=== PATIENT | female | born 2000 | race Caucasian/White ===

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

== ENCOUNTER 2020-10-30 23:40 | Emergency (ER) | payer OTHER, SELFPAY ==
--- NOTE | ~2020-10-30 | CT_ITS ---
EXAMINATION: CT abdomen pelvis w con DATE: 10/31/2020 01:07 INDICATION: Right lower quadrant abdominal pain. TECHNIQUE: Computed tomography (CT) of the abdomen and pelvis was performed with 100 mL Omnipaque 350 intravenous contrast. Automated exposure control and iterative reconstruction technique were employe d. The dose-length product was 305.87 mGy-cm. COMPARISON: None. FINDINGS: The visualized portions of the lung bases are clear without pneumonia or pleural effusion. The heart size is normal. No pericardial effusion. The liver, gallbladder, spleen, pancreas, and adre nal glands are normal. There are cysts in the kidneys measuring up to 10 mm on the right. There is li quid stool in the colon suggestive of diarrhea. The appendix is normal. There are no dilated loops of bowel. There is a small sliding hiatal hernia. There are no pathologically enlarged lymph nodes. The re is no free intraperitoneal fluid. The bones are unremarkable. IMPRESSION: 1. Small sliding hiatal hernia. Reviewed, dictated and finalized at location A.
[2020-10-30 23:44] VITALS: BP 116/66; PULSE 99; RESP 14; TEMP 36.6; O2SAT 99
--- NOTE | 2020-10-31 00:02 | PC.NURSE ---
While patient was getting blood drawn patient states she began to feel very dizzy and nauseous. Blood draw was stopped and patient got out of chair and kneeled next to trash can and had 2 episodes of emesis. Patient then sat on the ground after having a near syncopal episode. Patient alert and oriented and states she gets dizzy with blood draw. KIMBERP Leeanna updated.
[2020-10-31 00:17] LABS: Basophils Percent Auto 0.2 % (0.2-1.2); Eosinophils Absolute Auto 0.2 K/mm3 (0-0.3); Eosinophils Percent Auto 1.2 % (0-4.4); Hematocrit 44.2 % (37.0-47.0); Hemoglobin 15.2 g/dL (12.0-15.0); Immature Granulocyte Absolute 0.04 K/mm3 (0.00-0.031); Immature Granulocyte Percent A 0.3 % (0-0.5); Lymphocytes Absolute Auto 2.15 K/mm3 (0.9-3.2); Lymphocytes Percent Auto 16.4 % (18.3-44.2); Mean Corpuscular HGB Conc 34.4 g/dl (32-36); Mean Corpuscular Hemoglobin 31.5 pg (26-34); Mean Corpuscular Volume 91.7 fl (80-100); Mean Platelet Volume 11.3 fl (7.4-10.4); Monocytes Absolute Auto 0.5 K/mm3 (0.1-0.6); Neutrophils Absolute Auto 10.2 K/mm3 (1.3-6.7); Neutrophils Percent Auto 77.9 % (45.5-73.1); Platelet Count Result 384 k/mm3 (150-375); Red Blood Count 4.82 M/mm3 (4.2-5.4); Red Cell Distribution Width 11.9 % (11.5-14.5); White Blood Count 13.1 K/mm3 (4.5-10.0)
--- NOTE | 2020-10-31 00:27 | ED.GENADULT ---
HPI - General Adult General Chief complaint: Abdominal Pain Stated complaint: abd pain Time Seen by Provider: 10/31/20 00:20 History of Present Illness HPI narrative: Patient 19-year-old female presents the emergency department with chief complaint of abdominal pain. Patient states the pain began approximately 2 hours ago states that it is more localized to the right lower quadrant reports has had some nausea and vomiting with it. Patient denies fever denies chills reports her last period was approximately 6 months ago but she does continual OCPs without a withdrawal phase. Patient states that she is having no urinary symptoms no flank pain. Related Data Home Medications Medication Instructions Recorded Confirmed Adderall 20 mg DAILY 07/08/19 07/08/19 Tri 07/08/19 sertraline [Zoloft] 50 mg PO DAILY 07/08/19 07/08/19 spironolactone 100 mg PO DAILY 07/08/19 07/08/19 Allergies Allergy/AdvReac Type Severity Reaction Status Date / Time No Known Allergies Allergy Verified 11/25/19 16:15 Review of Systems Review of Systems: Narrative: A 10 system review of systems was completed on the patient and is negative except for what is stated in the HPI. Nursing and ancillary documentation was reviewed. PMFSH Comments Patient denies significant past medical history Social history the patient denies smoking Exam Narrative: Exam Narrative: GENERAL: Well-appearing, well-nourished, and in no acute distress. HEAD: Normocephalic, atraumatic. EYES: PERRLA and EOMI. ENT: Nares clear, no rhinorrhea or epistaxis. Mucous membranes moist. NECK: Supple. CHEST: Clear to auscultation. No respiratory distress. HEART: Regular rate and rhythm. No murmur heard. Normal peripheral pulses. ABDOMEN: Soft, tender to palpation in the right lower quadrant, nondistended, normal active bowel sounds. EXTREMITIES: Normal range of motion. No edema. SKIN: Warm, dry, no rash. NEURO: No focal deficits. Alert and oriented x3. PSYCH: Normal mood and affect. Course Course Emergency Course: CT scan shows no significant abnormalities other than fluid in the colon suggesting diarrhea Vital Signs Vital signs: Vital Signs Temperature 36.6 C 10/30/20 23:44 Pulse Rate 99 10/30/20 23:44 Respiratory Rate 14 10/30/20 23:44 Blood Pressure 116/66 10/30/20 23:44 Pulse Oximetry 99 10/30/20 23:44 Temperature 36.6 C 10/30/20 23:44 Pulse Rate 99 10/30/20 23:44 Respiratory Rate 14 10/30/20 23:44 Blood Pressure 116/66 10/30/20 23:44 Pulse Oximetry 99 10/30/20 23:44 Medical Decision Making Vital Signs Vital Signs: Vital Signs Temperature 36.6 C 10/30/20 23:44 Pulse Rate 99 10/30/20 23:44 Respiratory Rate 14 10/30/20 23:44 Blood Pressure 116/66 10/30/20 23:44 Pulse Oximetry 99 10/30/20 23:44 Temperature 36.6 C 10/30/20 23:44 Pulse Rate 99 10/30/20 23:44 Respiratory Rate 14 10/30/20 23:44 Blood Pressure 116/66 10/30/20 23:44 Pulse Oximetry 99 10/30/20 23:44 Lab Data Result diagrams: 10/31/20 00:04 10/31/20 00:04 Labs: Lab Results 10/31/20 10/31/20 10/31/20 Range/Units 00:04 00:04 00:35 WBC 13.1 H (4.5-10.0) K/mm3 RBC 4.82 (4.2-5.4) M/mm3 Hgb 15.2 H (12.0-15.0) g/dL Hct 44.2 (37.0-47.0) % MCV 91.7 (80-100) fl MCH 31.5 (26-34) pg MCHC 34.4 (32-36) g/dl RDW 11.9 (11.5-14.5) % Plt Count 384 H (150-375) k/mm3 MPV 11.3 H (7.4-10.4) fl Immature Gran % (Auto) 0.3 (0-0.5) % Neut % (Auto) 77.9 H (45.5-73.1) % Lymph % (Auto) 16.4 L (18.3-44.2) % [place] % (Auto) 4.0 (2.6-8.5) % Eos % (Auto) 1.2 (0-4.4) % Baso % (Auto) 0.2 (0.2-1.2) % Lymph # (Auto) 2.15 (0.9-3.2) K/mm3 [place] # (Auto) 0.5 (0.1-0.6) K/mm3 Eos # (Auto) 0.2 (0-0.3) K/mm3 Baso # (Auto) 0.0 (0.0-0.1) K/mm3 Abs Immat Gran (auto) 0.04 H (0.00-0.031) K/mm3 Absolute Neuts (auto) 10.2 H
[2020-10-31 00:29] LABS: Alanine Aminotransferase 24 U/L (4-35); Albumin Level 4.4 g/dL (3.7-5.6); Alkaline Phosphatase 29 U/L (45-116); Anion Gap 6 mmol/L (8-16); Aspartate Amino Transferase 53 U/L (14-36); Bilirubin,Total 0.5 mg/dL (0.2-1.3); Blood Urea Nitrogen 10 mg/dL (8-21); Calcium 9.4 mg/dL (8.9-10.7); Carbon Dioxide 26 mmol/L (22-30); Chloride 106 mmol/L (98-107); Estimated CRCL calculation 89 ml/min; Estimated Glomerular Filt Rate > 60; Glucose 89 mg/dL (65-105); Lipase 52 U/L (23-300); Potassium 3.8 mmol/L (3.4-5.0); Sodium 138 mmol/L (134-143)
[2020-10-31 01:02] LABS: Add Urine Microscopic? YES; Appearance Urine Clear (Clear); Bacteria Urine Trace /hpf; Bilirubin Urine Negative (Negative); Blood Urine Negative (Negative); Color Urine Yellow (Yellow); Glucose Urine UA Negative (Negative); Ketones Urine Negative (Negative); Leukocyte Esterase Ur Trace LEU/UL (Negative); Mucus Urine Few /lpf; Nitrate Urine Negative (Negative); Protein Urine 1+ mg/dL (Negative); RBC Urine 0-2 /hpf (0-2); Specific Grav Ur 1.025 (1.001-1.035); Squamous Epithelial Cell Urine Moderate /hpf (Few); Urobilinogen Urine Negative mg/dL (<2.0); WBC Urine 0-3 /hpf
[2020-10-31] MEDS: SODIUM CHLORIDE 0.9% IV 1,000 ML 999 ML IV CONT (01:10)
[2020-10-31] MEDS: ONDANSETRON INJ 4 MG/2 ML VIAL IV PUSH (01:10)
[2020-10-31] MEDS: MORPHINE SULFATE (*CRX) 4 MG/ML INJ IV PUSH (01:11)
[2020-10-31 02:36] VITALS: BP 110/65; PULSE 60; RESP 14; TEMP 36.6
== END 2020-10-31 02:37 | disposition home or self-care (01) ==
PROVIDERS: Emergency Provider Emergency Medicine; PCP Family Medicine
DX: R10.9 Unspecified abdominal pain (principal); K44.9 Diaphragmatic hernia without obstruction or gangrene
CPT/HCPCS: 36415; 74177; 80053; 81001; 81025; 83690; 85025; 96361; 96374; 96375; 99284; J2270; J2405; J7030; Q9967

== ENCOUNTER 2021-12-22 01:20 | Emergency (ER) | payer OTHER, SELFPAY ==
[2021-12-22] VITALS (9 sets, daily range): BP systolic 94–129; BP diastolic 50–86; PULSE 84–140; RESP 12–24; TEMP 36.7–39.1; O2SAT 96–99
--- NOTE | ~2021-12-22 | CT_ITS ---
EXAMINATION: CT abdomen pelvis wo con DATE: 12/22/2021 03:23 INDICATION: Fever TECHNIQUE: Computed tomography (CT) of the abdomen and pelvis was performed without intravenous contr ast. The dose-length product (DLP) was 470.89 mGy-cm. Automated exposure control and iterative recons truction technique were employed. COMPARISON: 10/31/2020 FINDINGS: The lung bases are clear. The heart size is normal. Within the limitations of noncontrast e xamination, the liver, spleen, pancreas, gallbladder, and adrenal glands are normal. The kidneys are unremarkable. No stones are identified in the kidneys, ureters, or bladder. There is no hydronephrosi s or hydroureter. No pathologically enlarged abdominal or pelvic lymph nodes are identified. There is no free intraperitoneal gas or evidence of bowel obstruction. A moderate volume of colonic stool is present. IMPRESSION: 1. No CT correlate for the patient's symptoms. Reviewed, dictated and finalized at location A.
--- NOTE | ~2021-12-22 | XR_ITS ---
EXAMINATION: XR chest 1V portable INDICATION: Cough and fever TECHNIQUE: Portable AP chest at 0155 hours COMPARISON: 10/19/2019 FINDINGS: The lungs are free of acute opacities. There is no pleural effusion or pneumothorax. The ca rdiomediastinal silhouette is normal. IMPRESSION: 1. No acute cardiopulmonary abnormality. Reviewed, dictated and finalized at location A.
[2021-12-22 01:59] LABS: Basophils Absolute Auto 0.1 K/mm3 (0.0-0.1); Basophils Percent Auto 0.3 % (0.2-1.2); Eosinophils Percent Auto 0.1 % (0-4.4); Hematocrit 36.6 % (37.0-47.0); Hemoglobin 11.9 g/dL (12.0-15.0); Immature Granulocyte Absolute 0.09 K/mm3 (0.00-0.031); Immature Granulocyte Percent A 0.5 % (0-0.5); Lymphocytes Absolute Auto 0.77 K/mm3 (0.9-3.2); Lymphocytes Percent Auto 4.2 % (18.3-44.2); Mean Corpuscular HGB Conc 32.5 g/dl (32-36); Mean Corpuscular Hemoglobin 30.9 pg (26-34); Mean Corpuscular Volume 95.1 fl (80-100); Mean Platelet Volume 10.6 fl (7.4-10.4); Monocytes Absolute Auto 0.7 K/mm3 (0.1-0.6); Monocytes Percent Auto 3.9 % (2.6-8.5); Neutrophils Absolute Auto 16.6 K/mm3 (1.3-6.7); Platelet Count Result 289 k/mm3 (150-375); Red Blood Count 3.85 M/mm3 (4.2-5.4); Red Cell Distribution Width 12.3 % (11.5-14.5); White Blood Count 18.3 K/mm3 (4.5-10.0)
--- NOTE | 2021-12-22 02:01 | ED.GENADULT ---
HPI - General Adult General Chief complaint: Fever Stated complaint: Fever Time Seen by Provider: 12/22/21 01:34 History of Present Illness HPI narrative: Patient is a 20-year-old female that presents the emergency department with chief complaint of fever. Reports that today she started having fever has had body aches and sore throat a little bit of a cough. The patient reports that she has been vaccinated for COVID has had a booster for COVID as well. The patient denies dysuria denies abdominal pain reports a little bit of nausea with this. Patient reports he is taken Tylenol last dose of 650 mg at 10 PM. Related Data Home Medications Medication Instructions Recorded Confirmed Adderall 20 mg DAILY 07/08/19 07/08/19 Tri 07/08/19 sertraline [Zoloft] 50 mg PO DAILY 07/08/19 07/08/19 spironolactone 100 mg PO DAILY 07/08/19 07/08/19 Allergies Allergy/AdvReac Type Severity Reaction Status Date / Time No Known Allergies Allergy Verified 12/22/21 01:35 Review of Systems Review of Systems: A 10 system review of systems was completed on the patient and is negative except for what is stated in the HPI. Nursing and ancillary documentation was reviewed. Exam Narrative: GENERAL: Well-appearing, well-nourished, and in no acute distress. HEAD: Normocephalic, atraumatic. EYES: PERRLA and EOMI. ENT: Nares clear, no rhinorrhea or epistaxis. Mucous membranes moist. NECK: Supple. CHEST: Clear to auscultation. No respiratory distress. HEART: Regular rate and rhythm. No murmur heard. Normal peripheral pulses. ABDOMEN: Soft, nontender, nondistended, normal active bowel sounds. EXTREMITIES: Normal range of motion. No edema. SKIN: Warm, dry, no rash. NEURO: No focal deficits. Alert and oriented x3. PSYCH: Normal mood and affect. Course Course Emergency Course: CT scan showed evidence of a right-sided pyelonephritis. Patient is feeling much better at this time patient would prefer to choose outpatient therapy since she is feeling much better. Patient was started on cefdinir and the patient was discharged home Vital Signs Vital signs: Vital Signs Temperature 39.1 C H 12/22/21 01:22 Pulse Rate 140 H 12/22/21 01:22 Respiratory Rate 24 H 12/22/21 01:22 Blood Pressure 118/69 12/22/21 01:22 Pulse Oximetry 98 12/22/21 01:22 Temperature 36.7 C 12/22/21 05:08 Pulse Rate 86 12/22/21 05:37 Respiratory Rate 12 12/22/21 05:37 Blood Pressure 99/60 L 12/22/21 05:37 Pulse Oximetry 96 12/22/21 05:37 Medical Decision Making Vital Signs Vital Signs: Vital Signs Temperature 39.1 C H 12/22/21 01:22 Pulse Rate 140 H 12/22/21 01:22 Respiratory Rate 24 H 12/22/21 01:22 Blood Pressure 118/69 12/22/21 01:22 Pulse Oximetry 98 12/22/21 01:22 Temperature 36.7 C 12/22/21 05:08 Pulse Rate 86 12/22/21 05:37 Respiratory Rate 12 12/22/21 05:37 Blood Pressure 99/60 L 12/22/21 05:37 Pulse Oximetry 96 12/22/21 05:37 Lab Data Result diagrams: 12/22/21 01:51 12/22/21 01:51 Labs: Lab Results 12/22/21 12/22/21 12/22/21 Range/Units 01:51 01:51 01:51 WBC 18.3 H (4.5-10.0) K/mm3 RBC 3.85 L (4.2-5.4) M/mm3 Hgb 11.9 L D (12.0-15.0) g/dL Hct 36.6 L (37.0-47.0) % MCV 95.1 (80-100) fl MCH 30.9 (26-34) pg MCHC 32.5 (32-36) g/dl RDW 12.3 (11.5-14.5) % Plt Count 289 (150-375) k/mm3 MPV 10.6 H (7.4-10.4) fl Immature Gran % (Auto) 0.5 (0-0.5) % Neut % (Auto) 91.0 H (45.5-73.1) % Lymph % (Auto) 4.2 L (18.3-44.2) % [place] % (Auto) 3.9 (2.6-8.5) % Eos % (Auto) 0.1 (0-4.4) % Baso % (Auto) 0.3 (0.2-1.2) % Lymph # (Auto) 0.77 L (0.9-3.2) K/mm3 [place] # (Auto) 0.7 H (0.1-0.6) K/mm3 Eos # (Auto) 0.0 (0-0.3) K/mm3 Baso # (Auto) 0.1 (0.0-0.1) K/mm3 Abs Immat Gran (auto) 0.09 H (0.00-0.031) K/mm3 Absolute Neuts (auto) 16.6 H (1.3-6.7) K/mm3 Absolute Nucleat
[2021-12-22] MEDS: ACETAMINOPHEN 325 MG TABLET PO (02:02)
[2021-12-22] MEDS: ONDANSETRON INJ 4 MG/2 ML VIAL IV PUSH (02:02)
[2021-12-22] MEDS: SODIUM CHLORIDE 0.9% IV 1,000 ML 999 ML IV CONT (02:02)
[2021-12-22] MEDS: IBUPROFEN 400 MG TABLET 800 MG PO (02:03)
[2021-12-22 02:09] LABS: Lactic Acid Reflex 1.2 mmol/L (0.7-2.0)
[2021-12-22 02:10] LABS: Anion Gap 7 mmol/L (8-16); Aspartate Amino Transferase 22 U/L (14-36); Bilirubin,Total 0.4 mg/dL (0.2-1.3); Blood Urea Nitrogen 11 mg/dL (7-17); Calcium 8.5 mg/dL (8.4-10.2); Carbon Dioxide 21 mmol/L (22-30); Chloride 104 mmol/L (98-107); Estimated CRCL calculation 80 ml/min; Estimated Glomerular Filt Rate > 60; Glucose 128 mg/dL (65-110); Potassium 3.8 mmol/L (3.4-5.0); Sodium 132 mmol/L (137-145)
[2021-12-22 02:11] LABS: Appearance Urine Clear (Clear); Bilirubin Urine Negative (Negative); Blood Urine Negative (Negative); Color Urine Yellow (Yellow); Glucose Urine UA Negative (Negative); Ketones Urine Negative (Negative); Leukocyte Esterase Ur 1+ LEU/UL (Negative); Nitrate Urine Negative (Negative); Protein Urine 1+ mg/dL (Negative); Urobilinogen Urine 0.2 mg/dL (<2.0)
[2021-12-22 02:11] LABS: Alanine Aminotransferase 15 U/L (4-35); Albumin Level 3.9 g/dL (3.5-5.1); Alkaline Phosphatase 29 U/L (38-126)
[2021-12-22 02:18] LABS: Add Urine Microscopic? YES; Amorphous Sediment Urine Few; Bacteria Urine 3+ /hpf; Mucus Urine Rare /lpf; Squamous Epithelial Cell Urine Few /hpf (Few); WBC Urine 21-30 /hpf
[2021-12-22 02:35] LABS: Influenza A QL RT-PCR Negative (Negative); Influenza B QL RT-PCR Negative (Negative); SARS-CoV-2 RNA PCR Negative
== END 2021-12-22 06:19 | disposition home or self-care (01) ==
PROVIDERS: Emergency Provider Emergency Medicine; PCP Family Medicine
DX: N12 Tubulo-interstitial nephritis, not specified as acute or chronic (principal); Z20.822 Contact with and (suspected) exposure to COVID-19
CPT/HCPCS: 36415; 71045; 74176; 80053; 81001; 81025; 83605; 85025; 87081; 87086; 87088; 87147; 87502; 87880; 96361; 96365; 96375; 99284; A9270; C9803; J0696; J2405; J7030; U0003; U0005

== ENCOUNTER 2022-06-25 16:49 | Emergency (ER) | payer OTHER, SELFPAY ==
--- NOTE | ~2022-06-25 | XR_ITS ---
EXAMINATION: XR chest 2V DATE: 06/25/2022 17:10 INDICATION: Productive cough TECHNIQUE: PA and lateral views of the chest are obtained. COMPARISON: 12/22/2021 FINDINGS: The lungs are free of acute opacities. No pleural effusion or pneumothorax. The cardiomedia stinal silhouette is normal. The visualized bones and soft tissues are unremarkable. IMPRESSION: 1. No acute cardiopulmonary abnormality. Reviewed, dictated and finalized at location B. L SUPERINTENDENT
--- NOTE | 2022-06-25 16:52 | ED.URI ---
HPI - URI/Sore Throat General Chief Complaint: Upper Respiratory Infection Stated Complaint: Cough Time Seen by Provider: 06/25/22 17:14 Source: patient and RN notes reviewed Mode of arrival: ambulatory Limitations: no limitations History of Present Illness HPI Narrative: 21-year-old female presents with concern for cough for 2 months. She reports become productive with yellow to brown sputum, she reports nasal congestion and sinus pain for that same amount of time. She reports history of seasonal allergies. She denies fever, chills, body aches. Denies taking any [id number] medications for her symptoms for her symptoms. MD elicited complaint: cough and nasal congestion Related Data Home Medications Medication Instructions Recorded Confirmed sertraline 50 mg tablet (Zoloft) 50 mg PO DAILY 07/08/19 06/25/22 drospirenone 3 mg-ethinyl 1 tablet PO DAILY 06/25/22 06/25/22 estradiol 0.02 mg tablet (CARLOS (28)) fluticasone propionate 220 2 puff inhalation DAILY 06/25/22 06/25/22 mcg/actuation HFA aerosol inhaler (Flovent HFA) lisdexamfetamine 20 mg capsule 20 mg PO DAILY 06/25/22 06/25/22 (Vyvanse) Allergies Allergy/AdvReac Type Severity Reaction Status Date / Time No Known Allergies Allergy Verified 06/25/22 17:04 Review of Systems Review of Systems: CONSTITUTIONAL: Denies malaise, chills, sweats, or fever. EYES: Denies visual changes, redness, or discharge. ENT: Reports rhinorrhea, congestion, sinus pain. Denies otalgia and sore throat. CARDIOVASCULAR: Denies chest pain, palpitations, or edema. RESPIRATORY: Reports productive cough. Denies dyspnea. GASTROINTESTINAL: Denies abdominal pain, nausea, vomiting, diarrhea SKIN: Denies rash or itching. MUSCULOSKELETAL: Denies myalgia. NEUROLOGIC: Denies headache. All systems reviewed & are unremarkable except as noted in HPI and below PMFSH Comments At time of signature, agree with nursing past medical, surgical, social and family history. There is no relevant family history pertinent to the presenting complaint Exam Narrative: GENERAL: Well-appearing, well-nourished, and in no acute distress. HEAD: Normocephalic EYES: PERRLA, conjunctivae clear ENT: Nares clear, turbinates edematous and erythematous. Mucous membranes moist. TM pearly mack with dull light reflex bilaterally; no tragal tenderness. Oropharynx not erythematous without lesions. Tonsils not enlarged and without exudate, no drooling, no hoarseness, no trismus, uvula midline. NECK: Supple. No lymphadenopathy CHEST: Clear to auscultation, breath sounds equal. No wheezing, rhonchi, rales, or stridor. No respiratory distress, speaks in full sentences. HEART: Regular rate and rhythm. No murmur heard. SKIN: Warm, dry, no rash. NEURO: Alert and oriented x3. PSYCH: Normal mood and affect Course Course Emergency Course: Patient is aware of diagnosis, understands and agrees to treatment plan. Anticipatory guidance given. Patient agrees to follow-up as directed and is aware of reasons to seek care at the emergency department. Portions of this record may have been created with voice recognition software Level of Care: Express Care Visit Vital Signs Vital signs: Vital Signs Temperature 97.8 F 06/25/22 16:58 Pulse Rate 90 06/25/22 16:58 Respiratory Rate 18 06/25/22 16:58 Blood Pressure 117/68 06/25/22 16:58 Pulse Oximetry 98 06/25/22 16:58 Oxygen Delivery Room Air 06/25/22 16:58 Temperature 97.8 F 06/25/22 16:58 Pulse Rate 90 06/25/22 16:58 Respiratory Rate 18 06/25/22 16:58 Blood Pressure 117/68 06/25/22 16:58 Pulse Oximetry 98 06/25/22 16:58 Oxygen Delivery Room Air 06/25/22 16:58 Reviewed. MDM - URI/Sore Throat MDM Narrative Medical decision making narrative: Differential diagnosis considered: [place] virus, strep pharyngitis, allergic rhinitis, upper respiratory tract infection, sinusitis, rhinosinusitis, nasopharyngitis. viral pharyngitis, otitis
[2022-06-25 16:58] VITALS: BP 117/68; PULSE 90; RESP 18; TEMP 36.6; O2SAT 98
== END 2022-06-25 17:30 | disposition home or self-care (01) ==
PROVIDERS: Emergency Provider Nurse Practitioner
DX: J32.9 Chronic sinusitis, unspecified (principal); J40 Bronchitis, not specified as acute or chronic; J45.909 Unspecified asthma, uncomplicated; N80.9 Endometriosis, unspecified; F90.9 Attention-deficit hyperactivity disorder, unspecified type; F41.9 Anxiety disorder, unspecified; F32.A Depression, unspecified
CPT/HCPCS: 71046; 99213; G0463

== ENCOUNTER 2022-07-11 10:13 | Emergency (ER) | payer OTHER, SELFPAY ==
[2022-07-11 11:46] VITALS: BP 116/74; PULSE 75; RESP 18; TEMP 36.3; O2SAT 100
--- NOTE | 2022-07-11 12:44 | ED.EAR ---
HPI - Ear Problem General Chief complaint: Ear Stated complaint: lt ear discomfort Source: patient Mode of arrival: ambulatory History of Present Illness HPI Narrative: This is a 21-year-old female who presented to our urgent care with complaints of left ear discomfort and drinking. According to patient her symptoms started a couple days ago. She did not do anything around to relieve her symptoms. The patient denies SOB, CP, palpitation, extremity numbness, lightheadedness, dizziness, constipation, change in hearing diarrhea, chills, or fever. Discharge instructions reviewed with patient, as well as provided in writing per nursing staff. The instructions also include specific and strict return/GO TO THE ER as well as f/u information. All questions have been answered, and the patient and/or family deny any further questions with discharge and discharge plan. Related Data Home Medications Medication Instructions Recorded Confirmed sertraline 50 mg tablet (Zoloft) 50 mg PO DAILY 07/08/19 07/11/22 drospirenone 3 mg-ethinyl 1 tablet PO DAILY 06/25/22 07/11/22 estradiol 0.02 mg tablet (CARLOS (28)) fluticasone propionate 220 2 puff inhalation DAILY 06/25/22 07/11/22 mcg/actuation HFA aerosol inhaler (Flovent HFA) lisdexamfetamine 20 mg capsule 20 mg PO DAILY 06/25/22 07/11/22 (Vyvanse) Allergies Allergy/AdvReac Type Severity Reaction Status Date / Time No Known Allergies Allergy Verified 07/11/22 11:58 Review of Systems Review of Systems: A 14 organ system Review of Systems was performed and pertinent positives included in the HPI, otherwise remaining ROS is negative. Exam Narrative: GENERAL: This is a well-nourished, well-developed patient, in no apparent distress. HEAD: normocephalic, atraumatic. EYES: PERRL. Sclera clear/white. Vision is grossly intact. EARS: External ears normal, left auditory canals with erythema, TMs with erythema without perforation. Hearing grossly intact. NOSE: External nose normal with no obvious nasal discharge, nares without redness, no rhinorrhea. THROAT: Mucous membranes moist, posterior pharynx clear. NECK: Neck supple, non-tender without lymphadenopathy, masses or thyromegaly. CARDIOVASCULAR: Regular rate and rhythm without murmurs, gallops, or rubs. RESPIRATORY: Clear to auscultation. Breath sounds equal bilaterally. No wheezes, rales, or rhonchi. GASTROINTESTINAL: Abdomen soft, non-tender, nondistended. Bowel sounds are active. No hepato-splenomegaly, or palpable masses. No guarding. SKIN: warm, intact with no suspicious lesions or rash, good texture and turgor. NEURO: awake, alert, and oriented to person, place and time. There were no obvious focal neurologic abnormalities. EXTREMITIES: Normal range of motion. No edema. No calf tenderness. Course Course Emergency Course: Patient will discharge with amoxicillin for the treatment of left ear otitis media Level of Care: Express Care Visit Vital Signs Vital signs: Vital Signs Temperature 97.4 F L 07/11/22 11:46 Pulse Rate 75 07/11/22 11:46 Respiratory Rate 18 07/11/22 11:46 Blood Pressure 116/74 07/11/22 11:46 Pulse Oximetry 100 07/11/22 11:46 Oxygen Delivery Room Air 07/11/22 11:46 Temperature 97.4 F L 07/11/22 11:46 Pulse Rate 75 07/11/22 11:46 Respiratory Rate 18 07/11/22 11:46 Blood Pressure 116/74 07/11/22 11:46 Pulse Oximetry 100 07/11/22 11:46 Oxygen Delivery Room Air 07/11/22 11:46 Procedures Ear Wax Removal Both Ears: Ear Wax Removal Date: 07/11/22 Ear Wax Removal Time: 12:46 Results: Re-examined: some cerumen remains TM Examination: TM(s) erythematous Patient Tolerated Procedure: no complications Complications: no problems Technique: ear canal irrigated Medical Decision Making Vital Signs Vital Signs: Vital Signs Temperature 97.4 F L 07/11/22 11:46 Pulse Rate 75 07/11/22 11:46 Respiratory Rate 18
== END 2022-07-11 12:45 | disposition home or self-care (01) ==
PROVIDERS: Emergency Provider Nurse Practitioner
DX: H66.92 Otitis media, unspecified, left ear (principal); H61.23 Impacted cerumen, bilateral
CPT/HCPCS: 69209; 99213; G0463

== ENCOUNTER 2022-11-27 11:25 | Emergency (ER) | payer OTHER, SELFPAY ==
[2022-11-27 11:38] VITALS: BP 106/80; PULSE 102; RESP 16; TEMP 37.1; O2SAT 100
--- NOTE | 2022-11-27 11:40 | ED.URI ---
HPI - URI/Sore Throat General Chief Complaint: Upper Respiratory Infection Stated Complaint: Headache,Body Aches,Congestion Time Seen by Provider: 11/27/22 11:40 Source: patient Mode of arrival: ambulatory Limitations: no limitations History of Present Illness HPI Narrative: 21-year-old female presents with complaint nasal congestion, runny nose, postnasal drainage, fatigue, body aches, headache, low-grade fever starting yesterday. 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 Denies chest pain and shortness of breath. Influenza vaccinated. All systems reviewed and negative except as noted above. Related Data Home Medications Medication Instructions Recorded Confirmed drospirenone 3 mg-ethinyl 1 tablet PO DAILY 06/25/22 11/27/22 estradiol 0.02 mg tablet (CARLOS (28)) fluticasone propionate 220 2 puff inhalation DAILY 06/25/22 11/27/22 mcg/actuation HFA aerosol inhaler (Flovent HFA) lisdexamfetamine 20 mg capsule 20 mg PO DAILY 06/25/22 11/27/22 (Vyvanse) buspirone 7.5 mg tablet 7.5 mg PO DAILY 11/27/22 11/27/22 Allergies Allergy/AdvReac Type Severity Reaction Status Date / Time iohexol Allergy Cough Verified 11/27/22 11:45 [From contrast - CT, X-RAY] Review of Systems Review of Systems: CONSTITUTIONAL: reports fever, chills, or sweats. EYES: Denies visual changes, redness, or discharge. ENT: Reports rhinorrhea, congestion. Denies sore throat, or otalgia. CARDIOVASCULAR: Denies chest pain, palpitations, or edema. RESPIRATORY: Denies cough or dyspnea. GASTROINTESTINAL: Denies abdominal pain, nausea, vomiting, or diarrhea. GENITOURINARY: Denies dysuria or hematuria. SKIN: Denies rash or itching. MUSCULOSKELETAL: Denies back pain, joint pain, or myalgia. NEUROLOGIC: reports headache. denies numbness, or weakness. PSYCHIATRIC: Denies anxiety or depression. All other systems reviewed are negative, except as documented in HPI. [facility] At time of signature, agree with nursing past medical, surgical, social and family history. There is no relevant family history pertinent to the presenting complaint. Exam Narrative: GENERAL: This is a well-nourished, well-developed patient, in no apparent distress. HEAD: normocephalic, atraumatic. EYES: PERRL. Sclera clear/white. Vision is grossly intact. EARS: External ears normal, auditory canals clear and without drainage, TMs normal without perforation. Hearing grossly intact. NOSE: External nose normal with Clear nasal drainage, erythema to both nares. THROAT: Mucous membranes moist, posterior pharynx clear. NECK: Neck supple, non-tender without lymphadenopathy, masses or thyromegaly. CARDIOVASCULAR: Regular rate and rhythm without murmurs, gallops, or rubs. RESPIRATORY: Clear to auscultation. Breath sounds equal bilaterally. No wheezes, rales, or rhonchi. SKIN: warm, Dry, intact with no suspicious lesions or rash, good texture and turgor. NEURO: awake, alert, and oriented to person, place and time. There were no obvious focal neurologic abnormalities. EXTREMITIES: No joint tenderness, effusion, or edema noted. Course Course Level of Care: Express Care Visit Vital Signs Vital signs: Vital Signs Oxygen Delivery Room Air 11/27/22 11:35 Temperature 37.1 C 11/27/22 11:38 Pulse Rate 102 H 11/27/22 11:38 Respiratory Rate 16 11/27/22 11:38 Blood Pressure 106/80 11/27/22 11:38 Pulse Oximetry 100 11/27/22 11:38 Oxygen Delivery Room Air 11/27/22 11:38 Reviewed MDM - URI/Sore Throat MDM Narrative Medical decision making narrative: Patient is aware of diagnosis, understands and agrees to treatment plan. Anticipatory guidance given. Patient agrees to follow-up as directed and is aware of reasons to seek care at the emergency department. Portions of this record may have been created with voice recognition software positive influenza a. Abran
== END 2022-11-27 11:55 | disposition home or self-care (01) ==
PROVIDERS: Emergency Provider Nurse Practitioner Family; PCP Family Medicine
DX: J10.1 Influenza due to other identified influenza virus with other respiratory manifestations (principal); J45.909 Unspecified asthma, uncomplicated; N80.9 Endometriosis, unspecified; F41.9 Anxiety disorder, unspecified; F32.A Depression, unspecified; F98.8 Other specified behavioral and emotional disorders with onset usually occurring in childhood and adolescence; F90.9 Attention-deficit hyperactivity disorder, unspecified type
CPT/HCPCS: 87804; 99213; G0463

== ENCOUNTER 2023-02-14 12:34 | Emergency (ER) | payer OTHER, SELFPAY ==
[2023-02-14 12:41] VITALS: BP 111/69; PULSE 73; RESP 16; TEMP 36.6; O2SAT 100
--- NOTE | 2023-02-14 12:58 | ED.NAVMDI ---
HPI - Nausea/Vomiting/Diarrhea General Chief complaint: Nausea/Vomiting/Diarrhea Stated complaint: Upset Stomach,Nausea Time Seen by Provider: 02/14/23 12:45 Source: patient Mode of arrival: ambulatory Limitations: no limitations History of Present Illness HPI Narrative: Lala is a 22-year-old female patient presenting to the clinic today with complaints of abdominal cramping, diarrhea, nausea, head congestion, and cough. Reports that cough and head congestion began few days ago however she developed abdominal cramping and diarrhea which prompted her to come into the clinic today. States that she ate some gas station food yesterday and thinks that this may be the cause. Reports 1 episode of diarrhea last night but she is still having some abdominal cramping and nausea. Also feels feverish/chills. 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 Related Data Home Medications Medication Instructions Recorded Confirmed drospirenone 3 mg-ethinyl 1 tablet PO DAILY 06/25/22 02/14/23 estradiol 0.02 mg tablet (CARLOS (28)) buspirone 7.5 mg tablet 7.5 mg PO BID 02/14/23 02/14/23 spironolactone 100 mg tablet 100 mg PO DAILY 02/14/23 02/14/23 Allergies Allergy/AdvReac Type Severity Reaction Status Date / Time iohexol AdvReac Mild Cough Verified 02/14/23 12:36 [From contrast - CT, X-RAY] Review of Systems Review of Systems: Pertinent positives per HPI. Patient denies any rash, headache, visual changes, dizziness, shortness of breath, chest pain, palpitations, vomiting, constipation, or any urinary issues. PMFSH Comments At the time of my signature, I reviewed and agree with the nursing past medical, surgical, social, and family history. There is no relevant family history pertinent to the patient complaint. Exam Narrative: General: Well-developed, well nourished, in no apparent distress Head: Normocephalic, atraumatic Eyes: Pupils equally round and reactive to light bilaterally, EOM intact, sclera and conjunctive clear, no discharge, lids normal Ears: TMs intact and clear, ear canals clear, no drainage, grossly hearing normal. Nose: Nares patent, clear nasal discharge, mild inflammation, no sinus tenderness. Mouth: Oral pharynx mildly red with enlarged tonsils, without lesions or masses, good dentition, MMM. Neck: Supple, trachea midline, enlargement of anterior cervical nodes, no thyroid masses or goiter palpable. Cardio: Regular rate and rhythm, s1 and s2 normal, no murmur appreciated. Resp: Clear to auscultation bilaterally, no rhonchi, rales, wheezing or rubs Abdomen: Soft, pliable, bowel sounds present in all quadrants, mild tender to palpation over the epigastrium, no organomegly, no CVAT tenderness. Course Course Emergency Course: Portions of this record may have been created with voice recognition software. Level of Care: Express Care Visit Vital Signs Vital signs: Vital Signs Temperature 36.6 C 02/14/23 12:41 Pulse Rate 73 02/14/23 12:41 Respiratory Rate 16 02/14/23 12:41 Blood Pressure 111/69 02/14/23 12:41 Pulse Oximetry 100 02/14/23 12:41 Temperature 36.6 C 02/14/23 12:41 Pulse Rate 73 02/14/23 12:41 Respiratory Rate 16 02/14/23 12:41 Blood Pressure 111/69 02/14/23 12:41 Pulse Oximetry 100 02/14/23 12:41 Vital signs reviewed MDM - Nausea/Vomiting/Diarrhea MDM Narrative Medical decision making narrative: At the time of visit patient is resting comfortably on exam table. Strep, COVID, influenza testing was performed. Influenza testing was positive for influenza A. Strep test and COVID test were negative. We will send strep for culture. Prescriptions for Levsin and Zofran was sent to the pharmacy. Patient is out of the window for antiviral medications Differential Diagnosis Differential diagnosis: Likely food poisoning, gastroenteritis, dehydration and other (COVID, influenza, viral syndrome, strep)
== END 2023-02-14 13:23 | disposition home or self-care (01) ==
PROVIDERS: Emergency Provider Nurse Practitioner Family; PCP Family Medicine
DX: J10.1 Influenza due to other identified influenza virus with other respiratory manifestations (principal); Z20.822 Contact with and (suspected) exposure to COVID-19; J45.909 Unspecified asthma, uncomplicated; K21.9 Gastro-esophageal reflux disease without esophagitis; N80.9 Endometriosis, unspecified; F41.9 Anxiety disorder, unspecified; F32.A Depression, unspecified
CPT/HCPCS: 87081; 87426; 87804; 87880; 99213; C9803; G0463

== ENCOUNTER 2023-10-05 10:23 | Emergency (ER) | payer OTHER, SELFPAY ==
[2023-10-05 10:32] VITALS: BP 114/74; PULSE 89; RESP 18; TEMP 36.7; O2SAT 100
--- NOTE | 2023-10-05 10:35 | ED.URI ---
HPI - URI/Sore Throat General Chief Complaint: Upper Respiratory Infection Stated Complaint: Bodyache,Chills,Congestion,Sore Throat Time Seen by Provider: 10/05/23 10:35 Source: patient Mode of arrival: ambulatory Limitations: no limitations History of Present Illness HPI Narrative: Lala is a 22-year-old female patient presenting to the clinic today with complaints of body aches, chills, congestion, and sore throat that started last night. She denies any known fever but has felt feverish. 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 MD elicited complaint: cough, sore throat and nasal congestion Related Data Home Medications Medication Instructions Recorded Confirmed drospirenone 3 mg-ethinyl 1 tablet PO DAILY 06/25/22 10/05/23 estradiol 0.02 mg tablet (CARLOS (28)) buspirone 7.5 mg tablet 7.5 mg PO BID 02/14/23 10/05/23 bupropion HCl 150 mg 24 hr tablet, 150 mg PO DAILY 10/05/23 10/05/23 extended release famotidine 20 mg tablet 20 mg PO BID 10/05/23 10/05/23 Allergies Allergy/AdvReac Type Severity Reaction Status Date / Time iohexol AdvReac Mild Cough Verified 10/05/23 10:25 [From contrast - CT, X-RAY] Review of Systems Review of Systems: Pertinent positives per HPI. Patient denies any fever, chills, rash, headache, visual changes, dizziness, cough, shortness of breath, chest pain, palpitations, nausea, vomiting, diarrhea, constipation, abdominal pain, or any urinary issues. PMFSH Comments At the time of my signature, I reviewed and agree with the nursing past medical, surgical, social, and family history. There is no relevant family history pertinent to the patient complaint. Exam Narrative: General: Well-developed, well nourished, in no apparent distress Head: Normocephalic, atraumatic Eyes: Pupils equally round and reactive to light bilaterally, EOM intact, sclera and conjunctive clear, no discharge, lids normal Ears: TMs intact and congested, ear canals clear, no drainage, grossly hearing normal. Nose: Nares patent, clear nasal discharge, no inflammation, no sinus tenderness. Mouth: Oral pharynx red without lesions or masses, good dentition, MMM. Neck: Supple, trachea midline, no enlargement of anterior or posterior cervical nodes, no thyroid masses or goiter palpable. Cardio: Regular rate and rhythm, s1 and s2 normal, no murmur appreciated. Resp: Clear to auscultation bilaterally, no rhonchi, rales, wheezing or rubs Course Course Emergency Course: Portions of this record may have been created with voice recognition software. Level of Care: Express Care Visit Vital Signs Vital signs: Vital Signs Temperature 36.7 C 10/05/23 10:32 Pulse Rate 89 10/05/23 10:32 Respiratory Rate 18 10/05/23 10:32 Blood Pressure 114/74 10/05/23 10:32 Pulse Oximetry 100 10/05/23 10:32 Oxygen Delivery Room Air 10/05/23 10:32 Temperature 36.7 C 10/05/23 10:32 Pulse Rate 89 10/05/23 10:32 Respiratory Rate 18 10/05/23 10:32 Blood Pressure 114/74 10/05/23 10:32 Pulse Oximetry 100 10/05/23 10:32 Oxygen Delivery Room Air 10/05/23 10:32 Vital signs reviewed MDM - URI/Sore Throat MDM Narrative Medical decision making narrative: At the time of visit patient is resting comfortably on the exam table. Patient appears to be nontoxic. Labs: COVID, influenza, and strep test were all negative in the clinic today. Plan: I suspect patient has URI/viral syndrome. Work/school note was given. Supportive measures were discussed with the patient and they voiced understanding discharge instructions and agrees to treatment plan. Return precautions reviewed Differential Diagnosis Differential diagnosis: Likely upper respiratory infection, otitis media, sinusitis, viral infection, bronchitis, influenza, pharyngitis and other Discharge Plan Discharge Clinical Impression: Viral infection Upper respiratory infection Qualifiers: URI type: unspecified URI Qualified Code(
== END 2023-10-05 11:05 | disposition home or self-care (01) ==
PROVIDERS: Emergency Provider Nurse Practitioner Family; PCP Family Medicine
DX: B34.9 Viral infection, unspecified (principal); J06.9 Acute upper respiratory infection, unspecified; Z20.822 Contact with and (suspected) exposure to COVID-19; J45.909 Unspecified asthma, uncomplicated; K21.9 Gastro-esophageal reflux disease without esophagitis; Z86.16 Personal history of COVID-19; F41.9 Anxiety disorder, unspecified; F32.A Depression, unspecified
CPT/HCPCS: 87081; 87426; 87804; 87880; 99213; G0463

== ENCOUNTER 2024-05-16 16:24 | Emergency (ER) | payer OTHER, SELFPAY ==
[2024-05-16 16:45] VITALS: BP 168/68; PULSE 103; RESP 16; TEMP 36.8; O2SAT 99
--- NOTE | 2024-05-16 17:01 | ED.GENADULT ---
HPI - General Adult General Chief complaint: Ear Stated complaint: RT Ear Infection Time Seen by Provider: 05/16/24 17:01 Source: patient, RN notes reviewed and old records reviewed Mode of arrival: ambulatory Limitations: no limitations History of Present Illness HPI narrative: 23-year-old female presents to the [facility] with complaints of right ear pain. Patient reports sinus congestion started on Thursday, 5 days ago. Ear pain started 2 days ago. Treatments prior to arrival: none Related Data Home Medications Medication Instructions Recorded Confirmed drospirenone 3 mg-ethinyl 1 tablet PO DAILY 06/25/22 05/16/24 estradiol 0.02 mg tablet (CARLOS (28)) bupropion HCl 150 mg 24 hr tablet, 150 mg PO DAILY 10/05/23 05/16/24 extended release famotidine 20 mg tablet 20 mg PO BID 10/05/23 05/16/24 fluticasone propionate 44 2 puff inhalation DAILY 05/16/24 05/16/24 mcg/actuation HFA aerosol inhaler lisdexamfetamine 30 mg capsule 30 mg PO DAILY 05/16/24 05/16/24 (Vyvanse) Allergies Allergy/AdvReac Type Severity Reaction Status Date / Time iohexol AdvReac Mild Cough Verified 05/16/24 16:49 [From contrast - CT, X-RAY] Review of Systems Review of Systems: All systems reviewed & are unremarkable except as noted in HPI and below Constitutional: Constitutional: Reports no additional constitutional complaints Eyes: Eyes: Reports no additional eye complaints ENT: Reports as per HPI Cardiovascular: Cardiovascular: Reports no additional cardiovascular complaints, Denies chest pain and Denies dyspnea Respiratory: Respiratory: Reports no additional respiratory complaints, Denies chest congestion, Denies cough and Denies dyspnea Gastrointestinal: Gastrointestinal: Reports no additional gastrointestinal complaints, Denies abdominal pain, Denies nausea and Denies vomiting Musculoskeletal: Musculoskeletal: Reports no additional musculoskeletal complaints Integumentary/Breasts: Skin/Breast: Reports system reviewed and no additional complaints, except as docu Neurologic: Reports system reviewed and no additional complaints, except as documented Psychiatric: Psychiatric: Reports no additional psychiatric complaints Allergic/Immunologic: Allergic/Immunologic: Reports no additional allergic/immunologic complaints PMFSH Comments At the time of my signature, I reviewed and agree with the nursing past medical, surgical, social, and family history. There is no relevant family history pertinent to the patient complaint. Exam Const: General: cooperative, healthy appearing, comfortable, no acute distress, well developed, alert and well nourished Nutritional Appearance: well nourished Orientation/consciousness: patient oriented x3 Limitations: no limitations HENMT: Head: normal to inspection Ears: hearing grossly normal bilaterally, external ears normal, EAC's normal, mastoids normal, no periauricular adenopathy and TM abnormal bulging on the right and with fluid behind the TM bilateral Face/Nose/Sinus: Normal external nose present, Normal nares present, Normal nasal mucous membranes and turbinates present, normal facial exam and face symmetric Face and sinus: normal facial exam and face symmetric Mouth: Yes Normal oral and palatal mucosa present, Yes lip normal and Yes tongue normal Throat: posterior oropharynx normal, uvula midline and no uvular edema Eyes: General: appearance normal, both eyes and all related structures Alignment and Position: alignment normal Periorbital: periorbital findings normal Neck: Neck: normal visual inspection, full ROM, no lymphadenopathy and no meningeal signs Chest: Chest palpation & inspection: normal inspection of the chest Resp: Effort & Inspection: normal respiratory effort and able to speak in complete sentences Auscultation: clear to auscultation bilaterally, no crackles, no rales, no rhonchi and no wheezes Cardio: Rate: regular rate Rhythm: regular rhythm Skin: General ski
== END 2024-05-16 18:50 | disposition home or self-care (01) ==
PROVIDERS: Emergency Provider Nurse Practitioner; PCP Family Medicine
DX: H65.01 Acute serous otitis media, right ear (principal); J45.909 Unspecified asthma, uncomplicated; K21.9 Gastro-esophageal reflux disease without esophagitis; F41.9 Anxiety disorder, unspecified; F32.A Depression, unspecified; F90.9 Attention-deficit hyperactivity disorder, unspecified type; Z86.16 Personal history of COVID-19
CPT/HCPCS: 99213; G0463